=== PATIENT | male | born 1945 | race Caucasian/White ===

== ENCOUNTER 2022-03-05 18:25 | Emergency (ER) | payer MEDICARE, OTHER ==
[~2022-03-05] VITALS: Ht 177.8 cm; Wt 85.0 kg
[2022-03-05] MEDS ORDERED: FAMOTIDINE 20 MG TABLET. PO ONE (19:45)
[2022-03-05] MEDS ORDERED: MULTIVIT INFUSN,ADULT 4,VIT K 10 ML, THIAMINE INJ 100 MG, FOLIC ACID INJ 1 MG in IV NOR... IV ONE (19:45)
[2022-03-05 19:53] LABS: BASO # 0.1 x10^3/uL (0.0-0.2); BASO % 1 % (0-3); EOS # 0.1 x10^3/uL (0.0-0.7); EOS % 1 % (0-3); HEMATOCRIT 38.8 % (39.0-53.0); HEMOGLOBIN 12.5 g/dL (13.0-17.5); LYMPH # 1.1 x10^3/uL (1.0-4.8); LYMPH % 10 % (24-48); MEAN CORPUSCULAR HEMOGLOBIN 27 pg (25-35); MEAN CORPUSCULAR HGB CONC 32 g/dL (31-37); MEAN CORPUSCULAR VOLUME 83 fL (79-100); MONO # 0.9 x10^3/uL (0.0-1.1); MONO % 8 % (0-9); NEUT % 81 % (31-73); PLATELET COUNT 291 x10^3/uL (140-400); RED BLOOD COUNT 4.69 x10^6/uL (4.30-5.70); RED CELL DISTRIBUTION WIDTH 19.8 % (11.5-14.5); WHITE BLOOD COUNT 11.1 x10^3/uL (4.0-11.0)
[2022-03-05 19:59] LABS: PROTHROMBIN TIME PATIENT 14.1 SEC (11.7-14.0)
[2022-03-05 20:09] LABS: CALCIUM 8.4 mg/dL (8.5-10.1); CREATININE 1.3 mg/dL (0.7-1.3); GFR 53.7; POTASSIUM 3.7 mmol/L (3.5-5.1)
[2022-03-05] MEDS ORDERED: ONDANSETRON PF 4 MG/2 ML VIAL. IVP ONE (20:15)
[2022-03-05] MEDS ORDERED: FAMOTIDINE 20 MG/2 ML VIAL IVP ONE (20:15)
[2022-03-05 20:16] LABS: ALBUMIN 3.4 g/dL (3.4-5.0); DIRECT BILIRUBIN 0.1 mg/dL (0.0-0.2); TOTAL PROTEIN 7.6 g/dL (6.4-8.2)
--- NOTE | 2022-03-05 20:23 | PHYS DOC ---
Past Medical History Additional Past Medical Histor: ETOH Past Surgical History: No Surgical History General Adult EDM: Chief Complaint: ALCOHOL INTOXICATION HPI: HPI: Patient is a 77 year old M who presents with history of alcohol use, patient says that secondary to anxiety and insomnia he began drinking heavily about 5 years ago and at this point drinks at least a pint of alcohol a day. Patient says he drank a pint prior to 10 AM today and has not drank since and is now feeling physical discomfort secondary to alcohol withdrawal and arrived to the hospital asking for help with his alcoholism. Patient says that he has never tried to go more than a day without drinking in the last 5 years and is unaware if he has severe alcohol withdrawal symptoms typically. Patient is complaining of epigastric pain associate with some nausea and anorexia, denies any vomiting, fevers, chills, shakes, seizure activity. Patient denies any other drug use, only other past medical history is hypertension for which he takes medication. [facility] and says he has been to them several times in the past with these medical problems and they have not referred him to any specialist. Review of Systems: Review of Systems: Constitutional: Denies fever or chills. [] Eyes: Denies change in visual acuity. [] HENT: Denies nasal congestion or sore throat. [] Respiratory: Denies cough or shortness of breath. [] Cardiovascular: Denies chest pain or edema. [] GI: Denies abdominal pain, nausea, vomiting, bloody stools or diarrhea. [] : Denies dysuria. [] Musculoskeletal: Denies back pain or joint pain. [] Integument: Denies rash. [] Neurologic: Denies headache, focal weakness or sensory changes. [] Endocrine: Denies polyuria or polydipsia. [] Lymphatic: Denies swollen glands. [] Psychiatric: Denies depression or anxiety. [] Heart Score: C/O Chest Pain: No Risk Factors: Risk Factors: DM, Current or recent (<one month) smoker, HTN, HLP, family history of CAD, obesity. Risk Scores: Score 0 - 3: 2.5% MACE over next 6 weeks - Discharge Home Score 4 - 6: 20.3% MACE over next 6 weeks - Admit for Clinical Observation Score 7 - 10: 72.7% MACE over next 6 weeks - Early Invasive Strategies Current Medications: Current Medications Medications (Trade) Dose Ordered Sig/Carley Start Time Stop Time Status Last Admin Dose Admin Famotidine (Pepcid Vial) 20 mg 1X ONCE 03/05/22 20:15 03/05/22 20:16 DC 03/05/22 19:47 20 MG Famotidine (Pepcid) 20 mg 1X ONCE 03/05/22 19:45 03/05/22 19:46 DC Multivitamins 10 ml/Thiamine HCl 100 mg/Folic Acid 1 mg/Sodium Chloride 1,011.2 ml @ 1,000 mls/ hr 1X ONCE 03/05/22 19:45 03/05/22 20:45 03/05/22 19:48 1,000 MLS/HR Ondansetron HCl (Zofran) 4 mg 1X ONCE 03/05/22 20:15 03/05/22 20:16 DC 03/05/22 19:47 4 MG Allergies: Allergies: Allergies Coded Allergies Type Severity Reaction Last Updated Verified No Known Drug Allergies 03/05/22 No Physical Exam: PE: Constitutional: Well developed, well nourished, no acute distress, non-toxic appearance. [] HENT: Normocephalic, atraumatic, bilateral external ears normal, oropharynx moist, no oral exudates, nose normal. [] Eyes: PERRLA, EOMI, conjunctiva normal, no discharge. [] Neck: Normal range of motion, no tenderness, supple, no stridor. [] Cardiovascular:Heart rate regular rhythm, no murmur [] Lungs & Thorax: Bilateral breath sounds clear to auscultation [] Abdomen: Bowel sounds normal, soft, no tenderness, no masses, no pulsatile masses. [] Skin: Warm, dry, no erythema, no rash. [] Back: No tenderness, no CVA tenderness. [] Extremities: No tenderness, no cyanosis, no clubbing, ROM intact, no edema. [] Neurologic: Alert and oriented X 3, normal motor function, normal sensory function, no focal deficits noted. [] Psychologic: Affect normal, judgement normal, mood normal. [] Current Patient Data: Labs: Laboratory Tests Test 03/05/22 19:40 White Blood Count 11.1 x10^3/uL (4.0-11.0) H Red Blood Count 4.69 x10^6/uL (4.30-5.70) Hemoglobin 12.5 g/dL (13.0-17.5) L Hematocrit 38.8 % (39.0-53.0) L Mean Corpuscular Volume 83 fL (79-100) Mean Corpuscular Hemoglobin 27 pg (25-35) Mean Corpuscular Hemoglobin Concent 32 g/dL (31-37) Red Cell Distribution Width 19.8 % (11.5-14.5) H Platelet Count 291 x10^3/uL (140-400) Neutrophils (%) (Auto) 81 % (31-73) H Lymphocytes (%) (Auto) 10 % (24-48) L Monocytes (%) (Auto) 8 % (0-9) Eosinophils (%) (Auto) 1 % (0-3) Basophils (%) (Auto) 1 % (0-3) Neutrophils # (Auto) 9.0 x10^3/uL (1.8-7.7) H Lymphocytes # (Auto) 1.1 x10^3/uL (1.0-4.8) Monocytes # (Auto) 0.9 x10^3/uL (0.0-1.1) Eosinophils # (Auto) 0.1 x10^3/uL (0.0-0.7) Basophils # (Auto) 0.1 x10^3/uL (0.0-0.2) Prothrombin Time 14.1 SEC (11.7-14.0) H Prothrombin Time INR 1.1 (0.8-1.1) Activated Partial Thromboplast Time 31 SEC (24-38) Sodium Level 137 mmol/L (136-145) Potassium Level 3.7 mmol/L (3.5-5.1) Chloride Level 99 mmol/L (98-107) Carbon Dioxide Level 23 mmol/L (21-32) Anion Gap 15 (6-14) H Blood Urea Nitrogen 7 mg/dL (8-26) L Creatinine 1.3 mg/dL (0.7-1.3) Estimated GFR (Cockcroft-Gault) 53.7 Glucose Level 118 mg/dL (70-99) H Calcium Level 8.4 mg/dL (8.5-10.1) L Magnesium Level 1.0 mg/dL (1.8-2.4) L Total Bilirubin 1.0 mg/dL (0.2-1.0) Direct Bilirubin 0.1 mg/dL (0.0-0.2) Aspartate Amino Transferase (AST) 43 U/L (15-37) H Alanine Aminotransferase (ALT) 18 U/L (16-63) Alkaline Phosphatase 113 U/L (46-116) Total Protein 7.6 g/dL (6.4-8.2) Albumin 3.4 g/dL (3.4-5.0) Ethyl Alcohol Level 71 mg/dL (0-10) H Laboratory Tests 03/05/22 19:40 Laboratory Tests 03/05/22 19:40 Vital Signs: Vital Signs Date Time Temp Pulse Resp B/P (MAP) Pulse Ox O2 Delivery O2 Flow Rate FiO2 03/05/22 18:35 98.0 97 20 136/65 (88) 98 Room Air 98.0 EKG: EKG: [] Radiology/Procedures: Radiology/Procedures: [] Course & Med Decision Making: Course & Med Decision Making Pertinent Labs and Imaging studies reviewed. (See chart for details) Will work patient up for potential alcohol intoxication/alcohol withdrawal. Patient's vital signs stable at this time, will check alcohol level, basic labs, giving patient a banana bag as well as Pepcid and Zofran for nausea and stomach upset. Pending labs will see if patient needs admission for alcohol withdrawal syndrome versus severe intoxication. Patient's alcohol level in the 70s, patient's vital signs stable, unlikely the patient will experience any significant or severe alcohol withdrawal symptoms based on those values. We will give the patient a p.o. dose of Librium to assist with withdrawal symptoms and to try encouraged him not to drink this morning. Patient was provided information for outpatient detox and crisis center and will call them tonight or in the morning to see what services are available to help him stop drinking. Patient informed that if his withdrawal symptoms become more severe he is welcome to come back for reevaluation and possible admission. [] [place] Disclaimer: Sudeep Disclaimer: This electronic medical record was generated, in whole or in part, using a voice recognition dictation system. Departure Departure Impression: Primary Impression: Alcohol abuse Disposition: HOME / SELF CARE / HOMELESS Condition: IMPROVED Referrals: NO PCP (PCP) Patient Instructions: Alcohol Withdrawal, [id number] Additional Instructions: [facility] [address] [place] [address] [facility] [address] [place] [address] [facility] [address] [facility] [place] [address] [facility] [address] [place] [address] [facility] [address] [place] [address] [facility] [address] [place] [address] [facility] [address] [place] [address] [facility] [address] [place] [address] [facility] [address] [place] [address] [facility] [address] [place] [address] LATRELL PULIDO MD March 05, 2022 20:23
[2022-03-05] MEDS ORDERED: chlordiazePOXIDE HCL 25 MG CAPSULE PO ONE (20:45)
[2022-03-05 21:20] VITALS: BP 146/69
== END 2022-03-05 21:25 | disposition home or self-care (01) ==
LOC: ER 18:25
DX: F10.129 Alcohol abuse with intoxication, unspecified (principal); G47.00 Insomnia, unspecified; Y90.3 Blood alcohol level of 60-79 mg/100 ml
CPT/HCPCS: 36415; 80048; 80076; 83735; 85025; 85610; 85730; 96365; 96375; 99285; G0480; J2405; J3411; J3490; J7030